=== PATIENT | male | born 1995 | race Caucasian/White ===

== ENCOUNTER 2021-06-19 16:30 | Emergency (ER) | payer OTHER ==
[~2021-06-19] VITALS: Ht 180.3 cm; Wt 75.0 kg
[~2021-06-19 16:30] MED LIST: AMOXICILLIN500 MG PO; AMOXICILLIN875 MG PO; TESSALON PER100 MG PO
[2021-06-19 19:15] VITALS: BP 144/71
== END 2021-06-19 19:15 | disposition home or self-care (01) | DRG 179 ==
LOC: ED 16:30
DX: U07.1 COVID-19 (principal)

== ENCOUNTER 2021-06-22 18:10 | Emergency (ER) | payer OTHER ==
[~2021-06-22] VITALS: Ht 180.3 cm; Wt 70.0 kg
[2021-06-22 19:14] VITALS: BP 140/88
== END 2021-06-22 19:20 | disposition home or self-care (01) | DRG 951 ==
LOC: ED 18:10
DX: Z20.822 Contact with and (suspected) exposure to COVID-19 (principal)